=== PATIENT | male | born 1985 | race Two or more races ===

== ENCOUNTER 2017-08-13 11:35 | Emergency (ER) | payer MEDICAID ==
[~2017-08-13] VITALS: Ht 167.6 cm; Wt 72.3 kg
[2017-08-13 11:47] VITALS: BP 137/80
== END 2017-08-13 12:21 | disposition home or self-care (01) ==
LOC: ED 12:15
DX: K02.9 Dental caries, unspecified (principal)
CPT/HCPCS: 99283